=== PATIENT | female | born 1950 | race Caucasian/White ===

== ENCOUNTER → 2016-06-14 | Outpatient (REF) | payer MEDICARE, OTHER | LOC: LAB 10:05 | PROVIDERS: ATTEND Family Medicine | DX: E11.9 Type 2 diabetes mellitus without complications (principal) | CPT/HCPCS: 83036 ==

== ENCOUNTER 2016-07-21 11:00 | Outpatient (RCR) | payer MEDICARE, OTHER | END 2016-07-28 12:00 | disposition home or self-care (01) | LOC: PT 11:00 | PROVIDERS: ATTEND Obstetrics & Gynecology | DX: N39.41 Urge incontinence (principal); N95.2 Postmenopausal atrophic vaginitis; L72.0 Epidermal cyst ==

== ENCOUNTER → 2016-08-30 | Outpatient (CLI) | payer MEDICARE, OTHER ==
[~2016-08-30] MED LIST: ALB0.5V INH; ASPI-860 PO; ATN50T PO; ATOR40TA2 PO; AZIT250T81 PO; BENZ200C43 PO; BUDE10.2 IH; CEPH500C PO; CIPR-226 PO; CPR500T PO; DULO60CA7 PO; FLUT1DIS3 IH; LEVO25TA2 PO; LORA10CA PO; MECL-105 PO; METF500T4 PO; MNTL10T PO; NF-FLON16G; PHEN-640 PO; PRED20TA PO; SIMV40TA2 PO; TRAZ-28 PO
[2016-08-30 16:22] VITALS: BP 140/77
--- NOTE | 2016-08-30 16:22 | Urgent Care T Sheet Gen (E) ---
Intake General Temperature (Fahrenheit): 97.6 Pulse: 65 Blood Pressure Systolic: 140 Blood Pressure Diastolic: 77 Respirations: 22 SPO2: 93 Description of Symptoms Patient states that 2 weeks ago her allergies flared up. Was advised to increase her daily meds. On Tuesday the patient started feeling bad, mostly malaise and nasal congestion. On Tuesday, she developed a deep cough with SOB. No fever. History of Present Illness Allergies: Coded Allergies: Sulfa (Sulfonamide Antibiotics) (Unverified Allergy, Intermediate, RASH, ) Home Meds Active Scripts Cephalexin 500 Mg Ppulcsi623 Mg PO BID Infection #10 CAP Ref 0 Prov:LEIGHTON SEWELL MD 02/11/16 Meclizine HCl 25 Mg Tablet1-2 Tab PO Q 6H PRN Nausea/Vomiting #20 TAB Ref 0 Prov:LEIGHTON SEWELL MD 02/11/16 Prednisone 20 Mg Fiyeuy07 Mg PO BID #8 TAB Prov:DENNY COLINDRES MD 03/27/15 Benzonatate 200 Mg Kmqwhbw365 Mg PO TID #15 CAP Prov:DENNY COLINDRES MD 03/27/15 Reported Medications Atorvastatin (Lipitor)40 Mg TabletUnknown Dose PO UD Ref 0 03/27/15 Budesonide/Formoterol Fumarate (Symbicort 160-4.5 mcg Inhaler)10.2 Gm Hfa.aer.ad10.2 Gm IH BID 12/04/14 Montelukast Sodium 10 Mg Uqgepo42 Mg PO HS 12/03/14 Fluticasone Propionate (Flonase 0.05% Nasal Rowe)16 Gm Spray16 Gm NA DAILY 12/03/14 Atenolol 50 Mg Bjurux23 Mg PO DAILY 12/03/14 Aspirin 81 Mg Tablet.dr81 Mg PO DAILY 12/03/14 Albuterol (Proventil 0.5%)2.5 Mg/0.5 Ml Nebu2.5 Mg INH NEEDED 01/16/14 Trazodone HCl 50 Mg Eicgba08 Mg PO HS 01/16/14 Levothyroxine Sodium (Synthroid)25 Mcg Tablet Po Daily 01/16/14 Duloxetine HCl (Cymbalta)60 Mg Capsule.dr60 Mg PO DAILY 01/16/14 Metformin HCl 500 Mg Evjqgk550 Mg PO BID 01/16/14 Respiratory Constitutional Symptoms: No Fever, Malaise EENTM: Nose Congestion Throat pain Respiratory: Cough Short of breath Cardiovascular: No symptoms reported Gastrointestinal/Abdominal: No symptoms reported All Other Systems Reviewed Remaining Systems: All other systems reviewed with negative findings Past Yeicxgs-Inwisj-Pyzrgw Hx Patient's Social History Alcohol Use: Denies Use Smoking Status: Never smoker Surgeries/Hospitalizations Hospitalization/Surgery Hx: HYSTERECTOMY, CYSTOSCOPY, HERNIA REPAIR Colonoscopy Rhinoplasty excision of right forearm melanoma Respiratory Respiratory History: Asthma Cardiovascular Cardiovascular History: Hypertension Neuro/Muscular Neuro/Muscular History: Other, see commnent Comment: Depression Reproductive System Sexually Transmitted Diseases: No Genitouinary Genitourinary History: Incontinence Gastrointestinal GI/Endocrine History: Thyroid disorder Diabetes Diabetes: NIDDM Oral med controlled HEENT Impaired Vision: Glasses Hearing Impaired: None Integumentary Integumentary History: Skin cancer Comment: Melanoma Cancer History of Cancer?: Yes Cancer type: Melanoma Psychosocial Behavior Disorders: None Physical Exam Physical Exam General Appearance: WD/WN No apparent distress Eyes, Ears, Nose, Throat Ex: TMs normal Pharyngeal erythema (cobblestone appearance with clear, thin drainage) Other (clear, thin nasal congestion;) Neck Exam: SuppleNo Lymphadenopathy Respiratory Exam: Rhonchi (deep, dry cough throughout exam.)No Wheezes Cardiovascular Exam: Regular rate, rhythm Departure Urgent Care Impression Impression: Primary Impression: Bronchitis Departure Disposition: 01 HOME OR SELF-CARE Condition: Stable Referrals: KANA ZEPEDA MD (PCP) Additional Instructions: I have started the patient on a Zpak for infection and Prednisone for inflammation and drainage. The Prednisone should help with her allergies as well Continue daily allergy regimen as prescribed Return if no better Patient is afebrile and her lungs were fairly clear. No concern for pneumonia. If symptoms persist, or get worse, she may return and at that time, I will order a chest xray Patient understands DC instructions. All questions were answered. Scripts Prednisone 20 Mg Vuzhdc23 Mg PO DAILY #8 TAB 40mg po daily x 3 days then 20mg po daily x 2 days Prov:ALEXANDER DURÁN 08/30/16 Azithromycin (Zithromax Z-Omar)6 Tab/Pkt [id number] Mg PO SEE INSTRUCTIONS #6 TAB Ref 0 Day One: Take 2 tablets by mouth Days Two-Five: Take 1 tablet by mouth Prov:ALEXANDER DURÁN 08/30/16 End of report . ALEXANDER DURÁN Aug 30, 2016 16:21
== END ==
LOC: MHUC 16:02
PROVIDERS: ATTEND Physician Assistant
DX: J40 Bronchitis, not specified as acute or chronic (principal)
CPT/HCPCS: 99213

== ENCOUNTER 2016-10-06 09:00 | Outpatient (RCR) | payer MEDICARE, OTHER ==
--- NOTE | 2016-08-24 13:55 | PT/OT/ST INITIAL EVALUATION ---
Department of Health and Human Services Form Approved [facility] Care Financing Administration OMB No. [id number] PLAN OF CARE/ASSESSMENT FOR OUTPATIENT REHABILITATION (Complete for Initial Claims Only) 1. PATIENT'S NAME Sharon Serrato 2. ACC # [id number] 3. [facility] [id number] 4. PROVIDER NO. [id number] 5. TYPE: PT 6. PRIOR HOSPITALIZATION NA 7. PRIMARY DX N39.41 urge urinary incontinence. 8. THERAPY DX N39.41 urge incontinence. N39.46 mixed incontinence. R10.2 pelvic and perineal pain. R53.1 weakness 9. ONSET DATE 6 years ago, increasing x4 months 10. REFERRAL DATE Initial referral date 05/25/2016, update 08/18/2016 11. SOC. DATE 08/18/2016 12. TIME OF EVAL 08:[address] Venkatesh Howard 13. CHARGES/UNITS NA 14. G CODES Current status [id number] Goal status [id number] 15. PRIOR LEVEL OF FUNCTION; PERTINENT HISTORY (Prior therapy results, reason for referral.) S: Prior to physical therapy intervention, the patient did agree to today's PT evaluation and treatment. Description/mechanism of injury: This patient is referred by Limnologist, Dr. Howard for physical therapy evaluation and treatment of urinary incontinence. The patient states that she has had trouble with incontinence for about 6 years, increasingly greatly over the last couple of years, increasing after abdominal surgeries. She has noticed a great increase in the last few months, to the point at which her incontinence interferes with most of her normal activities. It keeps her at home more than she would like. The patient also complains of pelvic pain that is dull in nature and constant. Her incontinence interferes with activities, such as shopping, running errands and being active in the community. She states that when she spends an increased amount of time on her feet, her bladder begins to feel heavier and heavier and the abdominal pain, pelvic pain and low back pain increases to the point to where she is miserable by the time she returns home from a shopping trip. She states that this is when urge incontinence is the most interfering in her life. She is desperate to get to the toilet and often feels she has to hurry to get there. She reports incontinence episodes at least 6 times a day. She has to wear a maxi pad at all times. The pads are irritating her skin and she is needing to use topical creams to treat this irritation. She reports urinary frequency with urination 10 to 20 times a day, she estimates. She also reports some stress incontinence with loss of urine control during coughing, laughing and sneezing. Her pelvic pain has increased in the last few years after having several abdominal surgeries. The patient states she did have a fall about 2 weeks ago, she awoke from a nap and was hurrying to get to the toilet, falling and striking her head against the door jam. She states that her balance is a problem and worry in her life as well. The patient states she hopes to become more physically active, hopes to be involved in the local fitness center, and wants to work on her overall health. She is working on decreasing the amount of diet soda she consumes. Prior level of function: The patient states that before 6 years ago she did not have any incontinence symptoms, or pelvic pain. In the last 4 to 6 months, the symptoms have been increasing in their interference with her ability to performed sustained activity in her home and community. Therapy History: The patient did attend one physical therapy visit for evaluation and treatment of incontinence on 06/09/2016. After that she canceled, or failed to show, for multiple scheduled appointments, stating that her health and her 's health were not allowing her to attend physical therapy regularly, however, she did telephone PT on 08/11/2016 to request return to PT for treatment of this issue. Obstacles to delivery of care: As stated above, the patient was unable to be consistent in her attendance with previously established physical therapy plan of care. On this date, she states that she is ready to commit to PT program at this time. Her urinary incontinence and pelvic pain symptoms are chronic, increasing in frequency and increasing in interruption and performance of her regular activities. This patient should be a good candidate for physical therapy interventions to address her current issues. Past medical history: The patient is diagnosed with type 2 diabetes mellitus, currently controlling this with oral medication, Metformin only. She is diagnosed with hypertension and takes an antihypertensive medicine. She has hypercholesterolemia and takes a statin medicine. She has chronic clinical depression, has been on antidepressants for over 20 years. She has had a recent change in her medication and initiated some counseling as well to deal with her depression. She reports one vaginal 37 years ago with prolonged labor, difficult delivery, and episiotomy. Current medications: Her current medication should not interfere with physical therapeutic interventions, may contribute some to dehydration or joint pain. The patient was educated this date regarding proper hydration and to discuss medications with her doctor. She does use a topical Premarin cream, which she was encouraged to do consistently to help with tissue profusion. She is also using a topical treatment for the skin irritation at the perineum, educated to discuss this application with her doctor and its possible ramifications with the topical Premarin cream. Past surgical history: The patient had a total hysterectomy at age 34 due to endometriosis. She had gallbladder surgery in 2006. She had a hernia repair in 2003. The patient does state that a great deal of her pelvic pain is in the area of the hernia incision. Patient's Goal: The patient's stated goal for physical therapy is to understand her symptoms and how to manage them, to control her bladder better and improve her overall health so she can be more active. She hopes to decrease her pad use to decrease skin irritation and expense. She plans to become involved in the local fitness center for her general health. 16. INITIAL ASSESSMENT/SAFETY PRECAUTIONS/MEDICAL COMPLICATIONS (Level of function at start of care. Be specific, use objective measures, list problems.) O: APPEARANCE AND OBSERVATION: The patient is a fairly healthy-appearing 66-year-old female. She is moderately overweight with a protruding abdomen. She demonstrates normal external genitalia with some superficial irritation at the perineum. She indicates areas of pain, right greater than left lower abdomen and pelvis. The bikini line scar on her abdomen from the hysterectomy and the hernia repair is tender to palpation and is restricted in mobility, much more restricted on the right side than the left. There is tenderness to palpation with tightness noted, right greater than left iliopsoas muscles and deep hip rotator muscles. STRENGTH: Core strength is fair. Bilateral hip girdle strength 3/5 to 3+/5. Strength to manual muscle test of the levator ani/pelvic floor muscle group is 3-/5. Her endurance is 3 to 4 seconds at maximum. She can only repeat this 4-second hold 3 times before fatigue of the musculature. She demonstrates poor coordination of breathing and core activation. Quick activation of the levator ani group the patient can repeat 5 times before fatigue. Volitional control with activation and relaxation of the pelvic floor musculature is fair. 17. INITIAL POC: (Specify procedures, modalities, short and senior living goals) A: This patient presents to physical therapy with chronic urinary incontinence, mixed type of both stress and urge incontinence. This is due in great part to fair control, poor endurance, and fair strength of the pelvic floor musculature. Restrictive scar tissue is present contributing to chronic pelvic pain. The patient has a very good goal in mind, to be able to be more physically active, and currently her urinary incontinence symptoms are interfering with her ability to do so. PROGNOSIS: The patient is a good candidate for physical therapy and conservative measures to address her current symptoms. She has a good prognosis to accomplish the following goals, provided good patient compliance and attendance. FUNCTIONAL LIMITATION CODES: Current status [id number]. Goal status [id number] Functional limitation coding based on current patient presentation, physical therapist professional judgment, urinary incontinence symptoms interfering with her function including activity in her home and community, shopping, walking for exercise. OUTCOME ASSESSMENT: Pelvic Floor Distress Inventory Questionnaire (PFDIQ) score 62/100, 62% disruption in function due to urinary incontinence. INFORMED CONSENT: The physical therapy diagnosis, prognosis, treatment plan, risks and expected outcomes were discussed with the patient on this date. She agrees to today's established physical therapy plan of care. SHORT TERM GOALS: 1. In 3 weeks, the patient to demonstrate an improvement in pelvic floor pelvic muscle awareness and initiate bladder training via completing a bladder diary. 2. In 8 weeks, the patient to demonstrate independence with a home exercise program to address her current symptoms. 3. In 8 weeks, the patient to demonstrate an improvement in pelvic floor muscle strength to 3+/5 to improve function with walking with a moderately full bladder. 4. In 8 weeks, the patient to demonstrate good volitional coordination of the core stabilizer muscle activation with functional mobility of bed mobility and transfers. RESISTANCE WELDER GOALS: 1. In 16 weeks, the patient to demonstrate improved bladder and pelvic function via pelvic floor distress inventory questionnaire score of 40% or less. 2. In 16 weeks, the patient to rate a 5/7 or greater on the global rating of Perceived Change Scale (GRC) regarding her pelvic pain and function. P: Plan to treat this patient 1 time per week for 16 weeks to address chronic urinary incontinence and pelvic pain. Physical therapeutic interventions will include manual therapy as needed to address scar tissue, painful spasm, tightness in joint and musculature including joint mobilization, soft tissue mobilization, and ASTYM. Therapeutic exercise, neuromuscular reeducation, and therapeutic activity training with emphasis on proper coordination of core musculature, pelvic floor musculature, and relating volitional control to normal daily activities, progressing to aerobic conditioning exercises will be performed. Training for activities of daily living with these emphases will be provided. The patient has been issued an initial home exercise program on this date, which will be progressed as warranted. Thank you for the referral of this patient 18. FREQUENCY 1 time per week 19. DURATION 16 weeks. 20. FUNCTIONAL LEVEL (End of claim period) 21. PHYSICIAN SIGNATURE ? ON FILE OR ENTER HERE: 22. DATE: I certify the need for these services furnished under this plan of care and if for partial hospitalization. 23. CERTIFICATION FROM THROUGH FORM FA-700
== END 2016-10-18 08:57 | disposition home or self-care (01) ==
LOC: PT 09:00
PROVIDERS: ATTEND Obstetrics & Gynecology
DX: N39.41 Urge incontinence (principal)
CPT/HCPCS: 97110; 97112; 97140; 97162; G8978; G8979